=== PATIENT | male | born 1980 | race Caucasian/White ===

== ENCOUNTER 2020-11-01 12:12 | Emergency (ER) | payer BC ==
[2020-11-01] MEDS ORDERED: Ibuprofen 800 MG TAB ONE (12:34)
[2020-11-01] MEDS ORDERED: Fluorescein Opthalmic Strip ONE (12:34)
[2020-11-01] MEDS ORDERED: Tetracaine 0.5% PF 4 ML BOT ONE (12:34)
[2020-11-01] MEDS ORDERED: Erythromycin Base 0.5% Ophth Oint 3.5 gm Tube ONE (12:38)
== END 2020-11-01 12:50 | disposition home or self-care (01) ==
LOC: MADERS 12:12
DX: S05.01XA Injury of conjunctiva and corneal abrasion without foreign body, right eye, initial encounter (principal); F17.210 Nicotine dependence, cigarettes, uncomplicated; I10 Essential (primary) hypertension; Z79.899 Other long term (current) drug therapy; W50.0XXA Accidental hit or strike by another person, initial encounter
CPT/HCPCS: 99283